=== PATIENT | female | born 1960 | race Caucasian/White ===

== ENCOUNTER 2017-09-05 14:03 | Emergency (ER) | payer MEDICARE, MEDICAID, SELFPAY ==
--- NOTE | 2017-09-05 14:07 | DI.RAD.S_ITS ---
PROCEDURE: XR CHEST 1V INDICATIONS: Chest pains history of congestive heart failure TECHNIQUE: One view of the chest was acquired. COMPARISON: [facility], , CHEST 2 VIEW, 12/15/2013, 12:51. FINDINGS: Surgical changes and devices: Surgical clips right axilla Lungs and pleura: No pleural effusions or pneumothorax. Elevation, eventration right hemidiaphragm. Lungs are clear. Mediastinum: Mediastinal contours appear normal. Heart size is normal. Bones and chest wall: No suspicious bony lesions. Overlying soft tissues appear unremarkable. IMPRESSION: No acute cardiopulmonary abnormality Dictated by: Ap Kim M.D. on 09/05/2017 at 14:40 Approved by: Ap Kim M.D. on 09/05/2017 at 14:42
[2017-09-05 14:10] VITALS: BP 143/91; PULSE 79; RESP 20; TEMP 36.9; O2SAT 96
--- NOTE | 2017-09-05 14:33 | ED_ITS ---
HPI - Chest Pain General Chief Complaint: Chest Pain Stated Complaint: CHEST PAINS, NAUSEA, HAS CHF Time Seen by Provider: 09/05/17 14:06 Source: patient Mode of arrival: ambulatory Limitations: no limitations History of Present Illness HPI narrative: 57-year-old female with a history of Parkinson's disease currently on medicine for this also history of diastolic heart failure secondary to chemotherapy from history of breast cancer here for evaluation of left-sided chest pain. Patient states she has had constant symptoms for the past 3 or 4 days with periods of time when the symptoms worsen. She states she has not been symptom free for several days. She reports that last evening her symptoms or the worst that they had been for the past several days. Denies any shortness of breath. States that it is a sharp and achy pain. Not worse with palpation. It is worse with taking a deep breath. Not worse with movement. She did take nitroglycerin last night which was given to her by her physical therapy technician and states that it slightly helped the pain. Patient states that her last cardiac catheterization was several years ago. She has never had any stent placement. Is scheduled for a pharmacologic stress test sometime in the near future but she does not know the exact date. Reports that she was having pain when she arrived here to the emergency department but that pain has improved by the time of my evaluation. Related Data Home Medications Medication Instructions Recorded Confirmed aspirin 81 mg PO QDAY #0 07/23/11 09/05/17 multivitamin 1 tab PO DAILY #0 07/23/11 09/05/17 albuterol sulfate [Ventolin HFA] 2 puff INH PRN #0 07/31/12 09/05/17 cyclobenzaprine 10 mg PO BEDTIME #0 07/31/12 09/05/17 metolazone 2.5 mg PO DAILY PRN #0 07/31/12 09/05/17 omeprazole 20 mg PO BEDTIME #0 07/31/12 09/05/17 nitroglycerin [Nitrostat] 1 tab SUBLINGUAL PRN PRN #0 05/14/17 09/05/17 potassium gluconate 1 tab PO DAILY #0 05/14/17 09/05/17 carbidopa-levodopa 1 tab PO DIRECTED 09/05/17 09/05/17 carvedilol 12.5 mg PO BID 09/05/17 09/05/17 colchicine [Colcrys] 1 tab PO PRN PRN 09/05/17 09/05/17 cyclobenzaprine 10 mg PO BEDTIME 09/05/17 09/05/17 donepezil 5 mg PO DAILY 09/05/17 09/05/17 febuxostat [Uloric] 80 mg PO DAILY 09/05/17 09/05/17 prednisone 10 - 20 mg PO DAILY PRN 09/05/17 09/05/17 pregabalin [Lyrica] 150 mg PO BID 09/05/17 09/05/17 ropinirole 1 tab PO QPM 09/05/17 09/05/17 spironolactone 50 mg PO DAILY 09/05/17 09/05/17 torsemide 20 mg PO DAILY 09/05/17 09/05/17 torsemide 50 mg PO QAM 09/05/17 09/05/17 Allergies Allergy/AdvReac Type Severity Reaction Status Date / Time allopurinol Allergy Verified 09/05/17 14:48 codeine AdvReac Rash Verified 09/05/17 14:48 Review of Systems Constitutional Denies chills, Denies fatigue, Denies fever(s) and Denies headache(s) ENT Ears, Nose, Mouth, and Throat: Denies headache(s) Cardiovascular Reports chest pain, Reports chest pain at rest, Denies rapid heart rate, Reports palpitations and Denies dyspnea Respiratory Denies cough, Reports pain on inspiration and Denies dyspnea Gastrointestinal Gastrointestinal: Denies abdominal pain, Denies constipation, Denies diarrhea, Denies nausea and Denies vomiting Genitourinary Denies dysuria Musculoskeletal Denies myalgias and Denies arthralgias Integumentary/Breasts Denies lesions and Denies rash Neurologic Denies headache(s) Endocrine Denies fatigue and Reports palpitations Hematologic/Lymphatic Denies easy bleeding and Denies easy bruising [facility] Social History Smoking Status: Never smoker Exam Initial Vital Signs Initial Vital Signs: Vital Signs Temperature 98.5 F 09/05/17 14:10 Pulse Rate 79 09/05/17 14:10 Respiratory Rate 20 09/05/17 14:10 Blood Pressure 143/91 H 09/05/17 14:10 Pulse Oximetry 96 09/05/17 14:10 Const General: cooperative, healthy appearing, comfortable, well developed, well groomed and No acute distress Orientation: alert, awake and oriented x3 HENMT Head: normal to inspection and normocephalic Chest Chest: normal inspection of the chest and normal palpation of entire chest wall Resp Effort & Inspection: normal respiratory effort and no cough Auscultation: clear to auscultation bilaterally Cardio Rate: regular rate Rhythm: regular rhythm Pulses: radial pulses present GI Inspection: normal to inspection and non-distended Palpation: soft and No firm Skin Lesions: no lesions Rashes: no rashes Neuro General: alert, awake and oriented x3 Cognition: normal cognition Speech: speech normal Motor: muscle tone normal throughout Sensory Exam: no sensory deficits noted Extrem General: normal to inspection, capillary refill normal and No edema Psych Appearance: grossly normal, well kempt and not disheveled Scores HEART Score Heart Score history: Slightly Suspicious Heart Score EKG: Non-Specific repolarization disturbance Heart Score Age: 45-64 years old Heart Score risk factors: 1-2 risk factors Heart Score troponin: < or = to normal limit Heart Score Total: 3 Course Orders Ordered: ED Orders 09/05/17 14:07 XR chest 1V Stat EKG-12 Lead Stat 09/05/17 14:15 B Type Natriuretic Peptide Stat Complete Blood Count AUTO DIFF Stat Comprehensive Metabolic Panel Stat Lipase Stat Troponin I Stat Discontinued Medications Aspirin (Aspirin Chew) 324 mg PO NOW ONE Stop: 09/05/17 14:33 Last Admin: 09/05/17 14:46 Dose: 324 mg Vital Signs - 8 hr 09/05/17 14:10 09/05/17 15:18 Temperature 98.5 F Pulse Rate 79 80 Respiratory Rate 20 11 L Blood Pressure 143/91 H Blood Pressure [Right Arm] 116/85 H Pulse Oximetry 96 96 MDM - Chest Pain Lab Data Attestation: I reviewed the patient's lab results. Result diagrams: 09/05/17 14:15 09/05/17 14:15 Lab Results 09/05/17 09/05/17 Range/Units 14:15 14:15 WBC 8.8 (4.5-11.0) X10^3/uL RBC 4.64 (4.0-5.2) X10^6/uL Hgb 13.7 (12.0-16.0) g/dL Hct 39.6 (36-46) % MCV 85.2 (80-100) fL MCH 29.5 (26-34) PG MCHC 34.6 (30-36) % RDW 14.9 H (11.6-14.8) % Plt Count 343 (150-400) X10^3/uL Neut % (Auto) 62.5 (50-75) % Lymph % (Auto) 27.8 (25-40) % [place] % (Auto) 8.5 (3-14) % Eos % (Auto) 0.0 L (2-4) % Baso % (Auto) 1.2 (0-2) % Neut # (Auto) 5500 (3945-4792) /uL Sodium 140 (137-145) mmol/L Potassium 3.3 L (3.4-5.1) mmol/L Chloride 93 L (98-107) mmol/L Carbon Dioxide 33 H (22-32) mmol/L BUN 28 H (7-17) mg/dL Creatinine 0.90 (0.52-1.04) mg/dL Estimated GFR > 60.0 (>60) mL/min BUN/Creatinine Ratio 31.1 H (6-22) Glucose 101 H (70-100) mg/dL Calcium 10.2 (8.4-10.2) mg/dL Total Bilirubin 1.3 (0.2-1.3) mg/dL AST 39 H (14-36) IU/L ALT 58 H (9-52) IU/L Alkaline Phosphatase 107 (38-126) U/L Troponin I < 0.012 (0.01-0.034) ng/mL B-Natriuretic Peptide 29.3 (<100) Total Protein 8.5 H (6.3-8.2) g/dL Albumin 5.1 H (3.5-5.0) g/dL Globulin 3.4 (1.7-4.1) g/dL Albumin/Globulin Ratio 1.5 (1.0-2.8) Lipase 95 (23-300) U/L Imaging Data Chest x-ray: Radiologist's impression: PROCEDURE: XR CHEST 1V INDICATIONS: Chest pains history of congestive heart failure TECHNIQUE: One view of the chest was acquired. COMPARISON: [facility], , CHEST 2 VIEW, 12/15/2013, 12:51. FINDINGS: Surgical changes and devices: Surgical clips right axilla Lungs and pleura: No pleural effusions or pneumothorax. Elevation, eventration right hemidiaphragm. Lungs are clear. Mediastinum: Mediastinal contours appear normal. Heart size is normal. Bones and chest wall: No suspicious bony lesions. Overlying soft tissues appear unremarkable. IMPRESSION: No acute cardiopulmonary abnormality Dictated by: Ap Kim M.D. on 09/05/2017 at 14:40 Approved by: Ap Kim M.D. on 09/05/2017 at 14:42 ECG Data Attestation: I personally reviewed and interpreted this ECG as follows: Prior ECG tracings: not available for review Interpretation: Sinus rhythm Ventricular rate 83 Normal axis Normal intervals Normal QRS Nonspecific ST T wave changes MDM Narrative Medical decision making narrative: Went in to discuss the patient's laboratory results with her. She reports that she is feeling much better. We did discuss that clinically and by labs that she is not in heart failure. She is not in respiratory distress. Is not hypoxic. We did discuss that her troponin. We discussed options to include staying here in the emergency department for another couple hours and redrawn the troponin verses being discharged home. Patient has had consistent chest pain for 3 or 4 days and has a negative troponin today. Heart score is 3. She does have a stress test scheduled for later this month. We did discuss that no it is at 0 risk for having coronary artery disease and our testing here in the emergency department is for risk stratification. She expressed understanding of this. She opted not to stay here in the emergency department for repeat troponin. She states she would rather go home call her physical therapy technician. Patient was given return precautions. She expressed understanding and agreement with plan Discharge Plan Departure Patient Disposition: Home, Self-Care Clinical Impression: Atypical chest pain Instructions: DI for Atypical Chest Pain Activity Restrictions/Additional Instructions: Recommend that you contact your physical therapy technician to schedule a follow-up. Keep your stress test that you have scheduled for later this month. Continue all of your medications as directed. Return to the emergency department for any new or worsening symptoms Prescriptions: No Action multivitamin Tablet 1 tab PO DAILY Qty: 0 RF: 0 aspirin 81 MG tablet,delayed release (DR/EC) 81 mg PO QDAY Qty: 0 RF: 0 metolazone 2.5 mg Tablet 2.5 mg PO DAILY PRN (Reason: Edema) Qty: 0 RF: 0 omeprazole 20 mg Capsule,Delayed Release(Dr/Ec) 20 mg PO BEDTIME Qty: 0 RF: 0 albuterol sulfate [Ventolin HFA] 90 MCG/PUFF HFA aerosol inhaler 2 puff INH PRN Qty: 0 RF: 0 cyclobenzaprine 10 MG tablet 10 mg PO BEDTIME Qty: 0 RF: 0 potassium gluconate 99 MG tablet 1 tab PO DAILY Qty: 0 RF: 0 nitroglycerin [Nitrostat] 0.4 MG tablet, sublingual 1 tab Sublingual PRN PRN (Reason: Chest Pain) Qty: 0 RF: 0 cyclobenzaprine 10 mg tablet 10 mg PO BEDTIME RF: 0 prednisone 10 mg tablet 10 - 20 mg PO DAILY PRN (Reason: gout flareup) RF: 0 carvedilol 12.5 mg tablet 12.5 mg PO BID RF: 0 donepezil 5 mg tablet 5 mg PO DAILY RF: 0 torsemide 20 mg tablet 20 mg PO DAILY RF: 0 ropinirole 3 mg tablet 1 tab PO QPM RF: 0 torsemide 100 mg tablet 50 mg PO QAM RF: 0 colchicine [Colcrys] 0.6 mg tablet 1 tab PO PRN PRN (Reason: GOUT FLAREUP) RF: 0 carbidopa-levodopa 25-100 mg tablet 1 tab PO DIRECTED RF: 0 spironolactone 50 mg tablet 50 mg PO DAILY RF: 0 pregabalin [Lyrica] 150 mg capsule 150 mg PO BID RF: 0 febuxostat [Uloric] 80 mg tablet 80 mg PO DAILY RF: 0
[2017-09-05 14:35] LABS: Add Manual Diff / Slide Review NO; Basophils Percent Auto 1.2 % (0-2); Hematocrit 39.6 % (36-46); Hemoglobin 13.7 g/dL (12.0-16.0); Lymphocytes Percent Auto 27.8 % (25-40); Mean Corpuscular HGB Conc 34.6 % (30-36); Mean Corpuscular Hemoglobin 29.5 PG (26-34); Mean Corpuscular Volume 85.2 fL (80-100); Monocytes Percent Auto 8.5 % (3-14); Neutrophils Absolute Auto 5500 /uL (3000-5900); Neutrophils Percent Auto 62.5 % (50-75); Platelet Count 343 X10^3/uL (150-400); Red Blood Cell Count 4.64 X10^6/uL (4.0-5.2); Red Cell Distribution Width 14.9 % (11.6-14.8); White Blood Cell Count 8.8 X10^3/uL (4.5-11.0)
[2017-09-05 14:38] LABS: Alanine Aminotransferase 58 IU/L (9-52); Albumin 5.1 g/dL (3.5-5.0); Albumin Globulin Ratio 1.5 (1.0-2.8); Alkaline Phosphatase 107 U/L (38-126); Aspartate Aminotransferase 39 IU/L (14-36); BUN Creatinine Ratio 31.1 (6-22); Bilirubin Total 1.3 mg/dL (0.2-1.3); Blood Urea Nitrogen 28 mg/dL (7-17); Calcium 10.2 mg/dL (8.4-10.2); Carbon Dioxide 33 mmol/L (22-32); Chloride 93 mmol/L (98-107); Estimated Glomerular Filt Rate > 60.0 mL/min (>60); Globulin 3.4 g/dL (1.7-4.1); Glucose 101 mg/dL (70-100); HEMOLYSIS 17 (0-50); Lipase 95 U/L (23-300); Potassium 3.3 mmol/L (3.4-5.1); Sodium 140 mmol/L (137-145); Total Protein 8.5 g/dL (6.3-8.2)
[2017-09-05] MEDS: ASPIRIN 81 MG TAB 324 MG PO (14:46)
[2017-09-05 15:05] LABS: Troponin I < 0.012 ng/mL (0.01-0.034)
[2017-09-05 15:09] LABS: B Type Natriuretic Peptide 29.3 (<100)
[2017-09-05 15:18] VITALS: BP 116/85; PULSE 80; RESP 11; O2SAT 96
[2017-09-05 15:57] VITALS: BP 120/75; PULSE 79; RESP 16; O2SAT 95
== END 2017-09-05 15:57 | disposition home or self-care (01) ==
PROVIDERS: Emergency Provider Emergency Medicine; Family Provider Internal Medicine Cardiovascular Disease; PCP Family Medicine
DX: R07.89 Other chest pain (principal)
CPT/HCPCS: 36591; 71045; 80053; 83690; 83880; 84484; 85025; 93005; 99282; 99285

== ENCOUNTER → 2017-12-31 12:05 | Outpatient (CLI) | payer MEDICARE, MEDICAID, SELFPAY ==
--- NOTE | 2017-12-31 | DI.MG.S_ITS ---
BILATERAL DIGITAL SCREENING MAMMOGRAM 3D/2D WITH CAD POST LUMPECTOMY: 12/31/2017 CLINICAL: Routine screening. Personal history of right breast cancer. Comparison is made to exams dated: 12/26/2015 mammogram - [facility], 03/27/2012 mammogram, and 06/28/2010 mammogram - [facility]. There are scattered fibroglandular elements in both breasts. Current study was also evaluated with a Computer Aided Detection (CAD) system. No significant masses, calcifications, or other findings are seen in either breast. There has been no significant interval change. IMPRESSION: NEGATIVE There is no mammographic evidence of malignancy. A 1 year screening mammogram is recommended. NOTE: For mammograms, a report in lay terms will be sent to the patient. Approximately 15% of breast malignancies will not be visualized mammographically. In the management of a palpable breast mass, a negative mammogram must not discourage biopsy of a clinically suspicious lesion. Electronically Signed By: Margarita muñoz/daria:12/31/2017 15:53:08 letter sent: Normal Exam ACR BI-RADS Category 1: Negative [id number]
== END ==
PROVIDERS: PCP Family Medicine; Visit Provider Family Medicine
DX: Z12.31 Encounter for screening mammogram for malignant neoplasm of breast (principal); Z85.3 Personal history of malignant neoplasm of breast
CPT/HCPCS: 77063; 77067

== ENCOUNTER → 2018-06-25 12:03 | Outpatient (CLI) | payer MEDICARE, MEDICAID, SELFPAY ==
[2018-06-25 12:41] LABS: Add Manual Diff / Slide Review NO; Basophils Absolute Auto 100 /uL (0-100); Basophils Percent Auto 0.7 % (0-2); Eosinophils Absolute Auto 0 /uL (0-450); Hematocrit 41.1 % (36-46); Hemoglobin 13.9 g/dL (12.0-16.0); Lymphocytes Absolute Auto 2300 /uL (1100-4500); Lymphocytes Percent Auto 25.5 % (25-40); Mean Corpuscular HGB Conc 33.9 % (30-36); Mean Corpuscular Hemoglobin 29.2 PG (26-34); Mean Corpuscular Volume 86.2 fL (80-100); Monocytes Absolute Auto 600 /uL (0-900); Monocytes Percent Auto 6.3 % (3-14); Neutrophils Absolute Auto 6100 /uL (1500-7000); Neutrophils Percent Auto 67.5 % (50-75); Platelet Count 325 X10^3/uL (150-400); Red Blood Cell Count 4.77 X10^6/uL (4.0-5.2); Red Cell Distribution Width 14.5 % (11.6-14.8); White Blood Cell Count 9.1 X10^3/uL (4.5-11.0)
[2018-06-25 13:00] LABS: Alanine Aminotransferase 57 IU/L (9-52); Albumin Globulin Ratio 1.5 (1.0-2.8); Alkaline Phosphatase 119 U/L (38-126); Aspartate Aminotransferase 39 IU/L (14-36); Bilirubin Total 1.5 mg/dL (0.2-1.3); Blood Urea Nitrogen 33 mg/dL (7-17); C-Reactive Protein Quant 1.6 mg/dL (<1.0); Calcium 10.1 mg/dL (8.4-10.2); Carbon Dioxide 32 mmol/L (22-32); Chloride 91 mmol/L (98-107); Estimated Glomerular Filt Rate 57.6 mL/min (>60); Globulin 3.3 g/dL (1.7-4.1); Glucose 114 mg/dL (70-100); HEMOLYSIS < 15 (0-50); Potassium 3.3 mmol/L (3.4-5.1); Sodium 138 mmol/L (137-145); Total Protein 8.3 g/dL (6.3-8.2)
[2018-06-25 13:04] LABS: Erythrocyte Sedimentation Rate 29 MM/HR (0-20)
== END ==
PROVIDERS: PCP Family Medicine; Visit Provider Specialist/Technologist Athletic Trainer
DX: M1A.09X1 Idiopathic chronic gout, multiple sites, with tophus (tophi) (principal)
CPT/HCPCS: 36415; 80053; 84550; 85025; 85651; 86140

== ENCOUNTER → 2019-09-29 12:42 | Outpatient (CLI) | payer MEDICARE, MEDICAID, SELFPAY ==
[2019-09-29 13:16] LABS: Add Manual Diff / Slide Review NO; Basophils Absolute Auto 100 /uL (0-100); Eosinophils Absolute Auto 0 /uL (0-450); Hematocrit 37.7 % (36-46); Lymphocytes Absolute Auto 2400 /uL (1100-4500); Lymphocytes Percent Auto 29.9 % (25-40); Mean Corpuscular HGB Conc 34.5 % (30-36); Mean Corpuscular Hemoglobin 29.9 PG (26-34); Mean Corpuscular Volume 86.7 fL (80-100); Monocytes Absolute Auto 500 /uL (0-900); Monocytes Percent Auto 6.8 % (3-14); Neutrophils Absolute Auto 4900 /uL (1500-7000); Neutrophils Percent Auto 62.3 % (50-75); Platelet Count 258 X10^3/uL (150-400); Red Blood Cell Count 4.35 X10^6/uL (4.0-5.2); Red Cell Distribution Width 13.7 % (11.6-14.8); White Blood Cell Count 7.9 X10^3/uL (4.5-11.0)
[2019-09-29 13:33] LABS: Erythrocyte Sedimentation Rate 37 MM/HR (0-20)
[2019-09-29 14:01] LABS: Alanine Aminotransferase 67 IU/L (<35); Albumin 4.8 g/dL (3.5-5.0); Albumin Globulin Ratio 1.5 (1.0-2.8); Alkaline Phosphatase 122 U/L (38-126); Aspartate Aminotransferase 47 IU/L (14-36); BUN Creatinine Ratio 21.4 (6-22); Bilirubin Total 1.1 mg/dL (0.2-1.3); Blood Urea Nitrogen 22 mg/dL (7-17); C-Reactive Protein Quant 2.1 mg/dL (<1.0); Calcium 10.4 mg/dL (8.4-10.2); Carbon Dioxide 32 mmol/L (22-32); Chloride 95 mmol/L (98-107); Estimated Glomerular Filt Rate 55.2 mL/min (>60); Globulin 3.3 g/dL (1.7-4.1); Glucose 168 mg/dL (70-100); HEMOLYSIS < 15 (0-50); Potassium 3.2 mmol/L (3.4-5.1); Sodium 138 mmol/L (137-145); Total Protein 8.1 g/dL (6.3-8.2); Uric Acid 5.1 mg/dL (2.5-6.2)
== END ==
PROVIDERS: PCP Family Medicine; Referring Provider Physician Assistant Medical; Visit Provider Physician Assistant Medical
DX: M12.9 Arthropathy, unspecified (principal); Z79.899 Other long term (current) drug therapy
CPT/HCPCS: 36415; 80053; 84550; 85025; 85651; 86038; 86140

== ENCOUNTER 2021-08-05 11:16 | Emergency (ER) | payer MEDICARE, OTHER, SELFPAY ==
[2021-08-05] VITALS (7 sets, daily range): BP systolic 130–185; BP diastolic 62–106; PULSE 65–85; RESP 12–18; TEMP 36.2; O2SAT 93–98; BMI 38.7
--- NOTE | 2021-08-05 11:44 | DI.CT.S_ITS ---
PROCEDURE: CT HEAD/BRAIN WO CON INDICATIONS: intense headaches, Parkinson's, word searching TECHNIQUE: Noncontrast 4.5 mm thick angled axial sections acquired from the foramen magnum to the vertex, with coronal and sagittal reformats. For radiation dose reduction, the following was used: automated exposure control, adjustment of mA and/or kV according to patient size. COMPARISON: None. FINDINGS: Image quality: Excellent. CSF spaces: Basal cisterns are patent. No extra-axial fluid collections. Ventricles are normal in size and shape. Brain: No midline shift. No intracranial masses or hemorrhage. Sol-white matter interface is normal. Skull and face: Calvarium and visualized facial bones are intact, without suspicious lesions. Sinuses: Visualized sinuses and mastoids are clear. IMPRESSION: Unremarkable noncontrast head CT. Dictated by: Moreno Patricia M.D. on 08/05/2021 at 11:07 Approved by: Moreno Patricia M.D. on 08/05/2021 at 11:08
[2021-08-05 13:02] LABS: Add Manual Diff / Slide Review NO; Basophils Absolute Auto 0 /uL (0-100); Basophils Percent Auto 0.5 % (0-2); Eosinophils Absolute Auto 0 /uL (0-450); Eosinophils Percent Auto 0.1 % (2-4); Hematocrit 38.1 % (36-46); Hemoglobin 13.1 g/dL (12.0-16.0); Lymphocytes Absolute Auto 1800 /uL (1100-4500); Lymphocytes Percent Auto 25.4 % (25-40); Mean Corpuscular HGB Conc 34.3 % (30-36); Mean Corpuscular Hemoglobin 29.4 PG (26-34); Mean Corpuscular Volume 85.5 fL (80-100); Monocytes Absolute Auto 500 /uL (0-900); Monocytes Percent Auto 7.7 % (3-14); Neutrophils Absolute Auto 4600 /uL (1500-7000); Neutrophils Percent Auto 66.3 % (50-75); Platelet Count 266 X10^3/uL (150-400); Red Blood Cell Count 4.46 X10^6/uL (4.0-5.2); Red Cell Distribution Width 14.2 % (11.6-14.8); White Blood Cell Count 6.9 X10^3/uL (4.5-11.0)
[2021-08-05 13:10] LABS: INR 0.9 (0.9-1.3); Prothrombin Time 10.2 SECONDS (10.1-12.7)
[2021-08-05 13:17] LABS: Alanine Aminotransferase 48 IU/L (<35); Albumin 4.4 g/dL (3.5-5.0); Albumin Globulin Ratio 1.3 (1.0-2.8); Alkaline Phosphatase 114 U/L (38-126); Aspartate Aminotransferase 36 IU/L (14-36); Blood Urea Nitrogen 18 mg/dL (7-17); Calcium 9.4 mg/dL (8.4-10.2); Carbon Dioxide 31 mmol/L (22-32); Chloride 99 mmol/L (98-107); Estimated Glomerular Filt Rate > 60 mL/min (>60); Globulin 3.3 g/dL (1.7-4.1); Glucose 227 mg/dL (70-100); HEMOLYSIS < 15 (0-50); Potassium 3.6 mmol/L (3.4-5.1); Sodium 139 mmol/L (137-145); Total Protein 7.7 g/dL (6.3-8.2)
[2021-08-05 13:18] LABS: Lactate (Lactic Acid) 1.9 mmol/L (0.7-2.1)
[2021-08-05 13:26] LABS: NT-proBNP (BNP-Adult 18+) 93 pg/mL (<125)
--- NOTE | 2021-08-05 13:52 | ED_ITS ---
HPI - Weakness General Chief complaint: Weakness Stated complaint: headache weak numbness Time Seen by Provider: 08/05/21 13:50 Source: patient Mode of arrival: Ambulatory Limitations: no limitations History of Present Illness HPI Narrative: This is a 61-year-old female with history of Parkinson's disease, CHF who occasionally takes aspirin 81 mg daily but not recently for complaint of significant sudden onset of worst headache of her life on August 02. Patient states the headache lasted probably tender 15 minutes and then sort of tapered off. She has a history of migraines but states this felt different. She typically would get an aura she did not have 1. Typically will be one-sided in this was all over her head. She states that she has chronic left-sided weakness greater than right and felt a little bit weaker on her left side. Patient states she has felt fatigued since then. She had nausea which has resolved no vomiting. She felt sort of numb in the center of her face. Which resolved as well. She states she has continued to have some mild discomfort which is been achy. She had 1 additional episode today in the waiting area the lasted 10 or 15 minutes and then has since resolved. She has felt a little bit shaky or than normal. She has not had any falls or trauma. No acute vision changes other than noting that her she loses her ability to focus when coloring a little bit faster than normal. No chest pain, no shortness of breath. One episode of diarrhea today, no new urinary frequency dysuria urgency. No swelling. No numbness or tingling in her extremities. She had a remote history of breast cancer with lumpectomy, chemo and radiation 20 years ago, no brain rad iation. She has had cholecystectomy. She is allergic to allopurinol. No tobacco, alcohol or illicit. She has a family history of her dad having an abdominal aortic aneurysm and aneurysm behind his knee. Her primary care is at [facility]. Related Data Home Medications Medication Instructions Recorded Confirmed aspirin 81 mg tablet,delayed 81 mg PO QDAY ##0 07/23/11 11/06/18 release multivitamin 1 tab PO DAILY ##0 07/23/11 11/06/18 albuterol sulfate 90 mcg/actuation 2 puff INH PRN ##0 07/31/12 11/06/18 aerosol inhaler (Ventolin HFA) cyclobenzaprine 10 mg tablet 10 mg PO BEDTIME ##0 07/31/12 11/06/18 metolazone 2.5 mg tablet 2.5 mg PO DAILY PRN Edema ##0 07/31/12 11/06/18 omeprazole 20 mg capsule,delayed 20 mg PO BEDTIME ##0 07/31/12 11/06/18 release nitroglycerin 0.4 mg sublingual 1 tab sublingual PRN PRN Chest 05/14/17 11/06/18 tablet (Nitrostat) Pain ##0 potassium gluconate 595 mg (99 mg) 1 tab PO DAILY ##0 05/14/17 11/06/18 tablet carbidopa 25 mg-levodopa 100 mg 1 tab PO DIRECTED 09/05/17 11/06/18 tablet carvedilol 12.5 mg tablet 12.5 mg PO BID 09/05/17 11/06/18 colchicine 0.6 mg tablet 1 tab PO PRN PRN GOUT FLAREUP 09/05/17 11/06/18 cyclobenzaprine 10 mg tablet 10 mg PO BEDTIME 09/05/17 11/06/18 donepezil 5 mg tablet 5 mg PO DAILY 09/05/17 11/06/18 febuxostat 80 mg tablet 80 mg PO DAILY 09/05/17 11/06/18 prednisone 10 mg tablet 10 - 20 mg PO DAILY PRN gout 09/05/17 11/06/18 flareup pregabalin 150 mg capsule 150 mg PO BID 09/05/17 11/06/18 ropinirole 3 mg tablet 1 tab PO QPM 09/05/17 11/06/18 spironolactone 50 mg tablet 50 mg PO DAILY 09/05/17 11/06/18 torsemide 100 mg tablet 50 mg PO QAM 09/05/17 11/06/18 torsemide 20 mg tablet 20 mg PO DAILY 09/05/17 11/06/18 Allergies Allergy/AdvReac Type Severity Reaction Status Date / Time allopurinol Allergy Verified 11/06/18 19:40 codeine AdvReac Rash Verified 11/06/18 19:40 Review of Systems Review of Systems ROS Unobtainable: All systems reviewed & are unremarkable except as noted in HPI and below Patient History Social History Smoking Status: Never smoker Smoking Status: Never smoker alcohol intake frequency: 0-2 drinks per day Substance Use Type: does not use Exam Narrative Exam Narrative: GEN: well nourished, well appearing female, alert and oriented x 3, patient appears to be in mild distress. HEENT: Atraumatic, pupils are equal round reactive to light, extraocular movements are intact, nares are clear, TMs are clear with no fluid, there is no conjunctival pallor. Throat is clear without any exudates, erythema, tonsillar enlargement or uvular deviation, no facial droop. HEART: Regular rate and rhythm without murmur, clicks, rubs. No carotid bruits, pulses are equal in upper and lower extremities LUNGS:Lungs clear to auscultation, no wheezes, rales, crackles, chest moves symmetrically ABD:bowel sounds normal, soft, non-tender, no guarding, rebound, rigidity, no masses noted, no hepatosplenomegaly :No CVA tenderness MSCL: Non-tender, no muscle atrophy, muscles strength 5/5 upper and lower extremities. NEURO:CN 2-12 intact, sensation normal, reflexes 2/4 upper and lower extremities. finger nose finger test normal, heel jiménez test abnormal bilaterally, slightly worse on the left, patient has a mild tremor upper and lower extremities. Normal gait. SKI:N no rash, erythema or other skin changes Initial Vital Signs Initial Vital Signs: Vital Signs Temperature 97.2 F L 08/05/21 11:38 Pulse Rate 85 08/05/21 11:38 Respiratory Rate 16 08/05/21 11:38 Blood Pressure 185/106 H 08/05/21 11:38 Pulse Oximetry 97 08/05/21 11:38 Oxygen Delivery Method 08/05/21 11:38 Course Orders Ordered: Discontinued Medications Acetaminophen (Acetaminophen 325 Mg Tablet) 975 mg PO NOW ONE Stop: 08/05/21 15:06 Last Admin: 08/05/21 15:22 Dose: 975 mg Documented By: THAO Lorazepam (Lorazepam 0.5 Mg Tablet) 0.5 mg PO NOW ONE Stop: 08/05/21 16:19 Last Admin: 08/05/21 16:49 Dose: 0.5 mg Documented By: ALICIA Metoclopramide HCl (Metoclopramide 10 Mg/2 Ml Inj) 10 mg IV NOW ONE Stop: 08/05/21 15:06 Last Admin: 08/05/21 15:22 Dose: 10 mg Documented By: THAO Reevaluation(s) Reevaluation #1: Reviewed patient's findings today. CTA negative within 6 hours window of most recent, discussed sensitivity versus risk. She has 1 first-degree relative. She does not have headache currently she does have some neck discomfort. You have to refer headache. Patient is unsure if she wants to proceed with lumbar puncture and risks versus benefits reviewed again. She is contemplating and wi ll make final decision Time: 15:06 Reevaluation #2: Patient and I reviewed her COVID swab is negative. She is still expressing 130 beyond about lumbar puncture. We reviewed once again risks and benefits that there is some risk that she could have subarachnoid cannot be completely ruled out. Patient and family at bedside are aware. At this time patient defers. She was encouraged to return at any time and we discussed that if she is not having any recurrent headaches would still be worthwhile to follow-up with her primary care for either MR angiography or more direct angiography that is available at larger facilities. Patient was having some increased restless leg symptoms likely from the Reglan on top of her Parkinson's disease. She states Benadryl makes her symptoms worse was given a dose of Ativan p.o. here. Time: 16:30 Vital Signs Vital signs: Vital Signs - 8 hr 08/05/21 11:38 08/05/21 12:34 08/05/21 12:35 Temperature 97.2 F L Pulse Rate 85 69 Respiratory Rate 16 12 Blood Pressure 185/106 H 162/78 H Pulse Oximetry 97 98 Oxygen Delivery Method Room Air 08/05/21 12:35 08/05/21 14:43 08/05/21 14:44 Temperature Pulse Rate 69 66 65 Respiratory Rate 15 18 Blood Pressure Pulse Oximetry 98 94 93 Oxygen Delivery Method 08/05/21 14:44 Temperature Pulse Rate Respiratory Rate Blood Pressure 130/77 Pulse Oximetry Oxygen Delivery Method MDM - Weakness Lab Data Result diagrams: 08/05/21 12:40 08/05/21 12:40 Labs: Lab Results 08/05/21 08/05/21 08/05/21 Range/Units 12:40 12:40 12:40 WBC 6.9 (4.5-11.0) X10^3/uL RBC 4.46 (4.0-5.2) X10^6/uL Hgb 13.1 (12.0-16.0) g/dL Hct 38.1 (36-46) % MCV 85.5 (80-100) fL MCH 29.4 (26-34) PG MCHC 34.3 (30-36) % RDW 14.2 (11.6-14.8) % Plt Count 266 (150-400) X10^3/uL Neut % (Auto) 66.3 (50-75) % Lymph % (Auto) 25.4 (25-40) % [place] % (Auto) 7.7 (3-14) % Eos % (Auto) 0.1 L (2-4) % Baso % (Auto) 0.5 (0-2) % Neut # (Auto) 4600 (6601-1593) /uL Lymph # (Auto) 1800 (0096-7625) /uL [place] # (Auto) 500 (0-900) /uL Eos # (Auto) 0 (0-450) /uL Baso # (Auto) 0 (0-100) /uL PT 10.2 (10.1-12.7) SECONDS INR 0.9 (0.9-1.3) Sodium 139 (137-145) mmol/L Potassium 3.6 (3.4-5.1) mmol/L Chloride 99 (98-107) mmol/L Carbon Dioxide 31 (22-32) mmol/L BUN 18 H (7-17) mg/dL Creatinine 0.82 (0.52-1.04) mg/dL Estimated GFR > 60 (>60) mL/min BUN/Creatinine Ratio 22.0 (6-22) Glucose 227 H (70-100) mg/dL Lactate (0.7-2.1) mmol/L Calcium 9.4 (8.4-10.2) mg/dL Total Bilirubin 1.0 (0.2-1.3) mg/dL AST 36 (14-36) IU/L ALT 48 H (<35) IU/L Alkaline Phosphatase 114 (38-126) U/L NT-Pro-B Natriuret Pep 93 (<125) pg/mL Total Protein 7.7 (6.3-8.2) g/dL Albumin 4.4 (3.5-5.0) g/dL Globulin 3.3 (1.7-4.1) g/dL Albumin/Globulin Ratio 1.3 (1.0-2.8) SARS-CoV-2 (PCR) (Negative) 08/05/21 08/05/21 Range/Units 12:40 15:07 WBC (4.5-11.0) X10^3/uL RBC (4.0-5.2) X10^6/uL Hgb (12.0-16.0) g/dL Hct (36-46) % MCV (80-100) fL MCH (26-34) PG MCHC (30-36) % RDW (11.6-14.8) % Plt Count (150-400) X10^3/uL Neut % (Auto) (50-75) % Lymph % (Auto) (25-40) % [place] % (Auto) (3-14) % Eos % (Auto) (2-4) % Baso % (Auto) (0-2) % Neut # (Auto) (4632-3836) /uL Lymph # (Auto) (0396-6847) /uL [place] # (Auto) (0-900) /uL Eos # (Auto) (0-450) /uL Baso # (Auto) (0-100) /uL PT (10.1-12.7) SECONDS INR (0.9-1.3) Sodium (137-145) mmol/L Potassium (3.4-5.1) mmol/L Chloride (98-107) mmol/L Carbon Dioxide (22-32) mmol/L BUN (7-17) mg/dL Creatinine (0.52-1.04) mg/dL Estimated GFR (>60) mL/min BUN/Creatinine Ratio (6-22) Glucose (70-100) mg/dL Lactate 1.9 (0.7-2.1) mmol/L Calcium (8.4-10.2) mg/dL Total Bilirubin (0.2-1.3) mg/dL AST (14-36) IU/L ALT (<35) IU/L Alkaline Phosphatase (38-126) U/L NT-Pro-B Natriuret Pep (<125) pg/mL Total Protein (6.3-8.2) g/dL Albumin (3.5-5.0) g/dL Globulin (1.7-4.1) g/dL Albumin/Globulin Ratio (1.0-2.8) SARS-CoV-2 (PCR) Negative (Negative) Imaging Data CT scan - head: Radiologist Impression: [address] [id number] Scan ReportSigned Patient: Laura Fonseca LMR#: [id number]: 1960Acct:[id number]/Sex: 61 / FDate of Service: 08/05/21Loc: EDAccession Number: [id number]? ? Procedure: CT head/brain wo con Ordering Provider: Kelsey Colorado D.O. PROCEDURE:? CT HEAD/BRAIN WO CON ? INDICATIONS:? intense headaches, Parkinson's, word searching ? TECHNIQUE:? Noncontrast 4.5 mm thick angled axial sections acquired from the foramen magnum to the vertex, with coronal and sagittal reformats.? For radiation dose reduction, the following was used:? automated exposure control, adjustment of mA and/or kV according to patient size.? ? COMPARISON:? None. ? FINDINGS:? Image quality:? Excellent.? ? CSF spaces:? Basal cisterns are patent.? No extra-axial fluid collections.? Vent ricles are normal in size and shape.? ? Brain:? No midline shift.? No intracranial masses or hemorrhage.? Sol-white matter interface is normal.? ? Skull and face:? Calvarium and visualized facial bones are intact, without suspicious lesions.? ? Sinuses:? Visualized sinuses and mastoids are clear.? ? IMPRESSION:? Unremarkable noncontrast head CT.? ? Dictated by: Moreno Patricia M.D. on 08/05/2021 at 11:07? ?? Approved by: Moreno Patricia M.D. on 08/05/2021 at 11:08?? CTA - brain/neck: Radiologist Impression: Close Head/Neck CTA (Signed) Walt Vega - 08/05/[address] (Signed) Moreno Patricia - 08/05/21 Mammogram Screening (Signed) Margarita Kramer - 12/31/17 Chest X-Ray (Signed) Ap Kim - 09/05/17 Launch?Image [address] [address] [address] Scan Report Signed Patient: Laura Fonseca MR#: [id number] : 1960 Acct:[id number] Age/Sex: 61 / F Date of Service: 08/05/21 Loc: ED Accession Number: [id number] ?? Procedure: CT angio head and neck Ordering Provider: Kelsey Colorado D.O. PROCEDURE:? CT ANGIO HEAD AND NECK ? INDICATIONS:? sudden onset MUÑIZ, resolved.? fam hx of aneurysm dad. ? TECHNIQUE:? After the administration of intravenous contrast, 1 mm thick sections acquired from the aortic arch through the [place] of Low.? Post-contrast 4.5 mm thick sections then re-acquired from the foramen magnum to the vertex.? 3-dimensional xkxlkws-ywbeynnnu-vnkualoxtm (MIP) and/or volume rendering reformats were acquired of the central intracranial vasculature and neck separately. For radiation dose reduction, the following was used:? automated exposure control, adjustment of mA and/or kV according to patient size.? ? COMPARISON:? [facility], CT, CT HEAD/BRAIN WO CON, 08/05/2021, 11:51. ? FINDINGS:? Image quality:? Excellent.? ? BRAIN:? CSF spaces:? Ventricles are normal in size and shape.? Basal cisterns are patent.? No extra-axial fluid collections.? ? Brain:? No midline shift.? No intracranial bleeds or masses.? Sol-white matter interface appears intact.? No area of abnormal contrast enhancement is seen ? Skull and face:? Calvarium and facial bones appear intact, without suspicious lesions.? Orbits appear normal.? ? Sinuses:? Sinuses and mastoids are clear.? ? HEAD CT ANGIOGRAPHY:? Anterior circulation:? Intracranial internal carotid arteries are normal in size and flow.? The flow within the paired anterior cerebral arteries is normal and symmetric.? The flow within the middle cerebral arteries is normal and symmetric.? The anterior communicating artery is seen.? No aneurysms are seen.? ? Posterior circulation:? Visualized portions of the vertebral arteries demonstrate normal caliber, and join to form a normal appearing basilar artery.? Flow within the posterior cerebral arteries is normal and symmetric.? No aneurysms are seen.? ? NECK CT ANGIOGRAPHY:? Carotid system:? The great vessels demonstrate a conventional anatomy as they arise from the aortic arch.? The origins of the common carotid arteries appear patent.? The common carotid arteries demonstrate normal caliber and courses.? The bifurcation regions are both widely patent.? The internal carotid arteries demonstrate normal calibers and courses.? ? Posterior circulation:? The origins of the vertebral arteries both appear widely patent.? The more superior extracranial portions of both vertebral arteries also demonstrate normal courses and calibers.? They join to form a normal appearing basilar artery.? ? Soft tissues:? Visualized neck soft tissues demonstrate no suspicious abnormalities.? ? Bones:? No suspicious bony lesions.? Visualized cervical spine appears normally aligned.? IMPRESSION:? 1. No CT evidence of acute intracranial abnormalities.? No area of abnormal intracranial enhancement.? 2. No hemodynamically significant stenosis or aneurysm is seen in intracranial circulation. 3. No hemodynamically significant stenosis is seen in bilateral neck arteries.? ? Any quantitative measurements of stenosis were performed using NASCET criteria.? ? ? Dictated by: Walt Vega M.D. on 08/05/2021 at 14:38 ? ? Approved by: Walt Vega M.D. on 08/05/2021 at 14:41?? ECG Data Attestation: I personally reviewed and interpreted this ECG as follows: Prior ECG tracings: available for review Interpretation: Sinus rhythm, 71 right, [place] 170 QRS of 108 QTC of 421. Patient has prior from 09/05/2017. [facility] Narrative Medical decision making narrative: This is a 61-year-old female with sudden onset severe headache last week which had resolved but still felt sort of achy and unwell. She had some numbness in her central face, she had appreciated a little bit of increased left weakness but states she chronically has left weakness from her Parkinson's disease. Patient states that today when she came to the emergency department she develope d a headache while waiting to be seen again. Patient has had migraines before but states this is different. She has a family history of father with popliteal an aortic abdominal aneurysm no other known family members with aneurysms. Patient and I discussed head CT was negative and CT angio negative within 6 hours of onset of today's symptoms. We did discuss lumbar puncture to rule out SAH, after some discussion patient defers. We did discuss we cannot completely rule out bleed or aneurysm without lumbar puncture although sensitivity for CTA in a 6 hour window from onset of symptoms is good it is not perfect. She expresses understanding was encouraged to return at any time all questions answered. Her and her sister both were at bedside for this discussion. Patient did have some Tylenol and Reglan for her headache which she described at this time is mild and more lower in her neck. This made for restless leg symptoms worsen she was given a single dose of lorazepam. Patient is ambulating in the department. Discharge Plan Departure Patient Disposition: Home Clinical Impression: Headache Instructions: DI for Headache Activity Restrictions/Additional Instructions: Please follow-up shortly with your physician for recheck. We did discuss performing lumbar puncture today but as dicussed did not. There are additional ways web development instructor to follow up that you can ask with your physician including MRI/MRAngiography. Your CT angiography today was negative for any signs of aneurysm or bleed at this time. Please return for recurrent or worsening headaches, passing out persistent vomiting, new chest pain or shortness of breath, new numbness, weakness or sudden neurologic changes or other new or concerning symptoms. Prescriptions: No Action multivitamin Tablet 1 tab PO DAILY Qty: 0 Label Comments: PATIENT STATES HAS NOT TAKEN FOR AWHILE aspirin 81 MG tablet,delayed release (DR/EC) 81 mg PO QDAY Qty: 0 Label Comments: NOT TAKEN TODAY. PATIENT STATES RAN OUT metolazone 2.5 mg Tablet 2.5 mg PO DAILY PRN (Reason: Edema) Qty: 0 omeprazole 20 mg Capsule,Delayed Release(Dr/Ec) 20 mg PO BEDTIME Qty: 0 albuterol sulfate [Ventolin HFA] 90 MCG/PUFF HFA aerosol inhaler 2 puff INH PRN Qty: 0 cyclobenzaprine 10 MG tablet 10 mg PO BEDTIME Qty: 0 potassium gluconate 99 MG tablet 1 tab PO DAILY Qty: 0 nitroglycerin [Nitrostat] 0.4 MG tablet, sublingual 1 tab Sublingual PRN PRN (Reason: Chest Pain) Qty: 0 cyclobenzaprine 10 mg tablet 10 mg PO BEDTIME prednisone 10 mg tablet 10 - 20 mg PO DAILY PRN (Reason: gout flareup) Label Comments: take 1 to 2 tablets by mouth FOR 3 TO 5 DAYS NEEDED FOR GOUT FLARE carvedilol 12.5 mg tablet 12.5 mg PO BID donepezil 5 mg tablet 5 mg PO DAILY torsemide 20 mg tablet 20 mg PO DAILY ropinirole 3 mg tablet 1 tab PO QPM torsemide 100 mg tablet 50 mg PO QAM colchicine [Colcrys] 0.6 mg tablet 1 tab PO PRN PRN (Reason: GOUT FLAREUP) Label Comments: TAKE 1 TAB AT ONSET OF A GOUT FLARE AND THEN IN NEXT HOUR TAKE 1 ADDITIONAL TAB carbidopa-levodopa 25-100 mg tablet 1 tab PO DIRECTED Label Comments: PATIENT STATES NEEDED TID spironolactone 50 mg tablet 50 mg PO DAILY pregabalin [Lyrica] 150 mg capsule 150 mg PO BID febuxostat [Uloric] 80 mg tablet 80 mg PO DAILY Label Comments: take 1 tablet by mouth once daily Referrals: Lois Heller MD [Primary Care Provider] - Visit Report Forms: Patient Portal/API
--- NOTE | 2021-08-05 14:13 | DI.CT.S_ITS ---
PROCEDURE: CT ANGIO HEAD AND NECK INDICATIONS: sudden onset MUÑIZ, resolved. fam hx of aneurysm dad. TECHNIQUE: After the administration of intravenous contrast, 1 mm thick sections acquired from the aortic arch through the [place] of Low. Post-contrast 4.5 mm thick sections then re-acquired from the foramen magnum to the vertex. 3-dimensional asulaos-ycksvvjgy-xbhlpaqczq (MIP) and/or volume rendering reformats were acquired of the central intracranial vasculature and neck separately. For radiation dose reduction, the following was used: automated exposure control, adjustment of mA and/or kV according to patient size. COMPARISON: [facility], CT, CT HEAD/BRAIN WO CON, 08/05/2021, 11:51. FINDINGS: Image quality: Excellent. BRAIN: CSF spaces: Ventricles are normal in size and shape. Basal cisterns are patent. No extra-axial fluid collections. Brain: No midline shift. No intracranial bleeds or masses. Sol-white matter interface appears intact. No area of abnormal contrast enhancement is seen Skull and face: Calvarium and facial bones appear intact, without suspicious lesions. Orbits appear normal. Sinuses: Sinuses and mastoids are clear. HEAD CT ANGIOGRAPHY: Anterior circulation: Intracranial internal carotid arteries are normal in size and flow. The flow within the paired anterior cerebral arteries is normal and symmetric. The flow within the middle cerebral arteries is normal and symmetric. The anterior communicating artery is seen. No aneurysms are seen. Posterior circulation: Visualized portions of the vertebral arteries demonstrate normal caliber, and join to form a normal appearing basilar artery. Flow within the posterior cerebral arteries is normal and symmetric. No aneurysms are seen. NECK CT ANGIOGRAPHY: Carotid system: The great vessels demonstrate a conventional anatomy as they arise from the aortic arch. The origins of the common carotid arteries appear patent. The common carotid arteries demonstrate normal caliber and courses. The bifurcation regions are both widely patent. The internal carotid arteries demonstrate normal calibers and courses. Posterior circulation: The origins of the vertebral arteries both appear widely patent. The more superior extracranial portions of both vertebral arteries also demonstrate normal courses and calibers. They join to form a normal appearing basilar artery. Soft tissues: Visualized neck soft tissues demonstrate no suspicious abnormalities. Bones: No suspicious bony lesions. Visualized cervical spine appears normally aligned. IMPRESSION: 1. No CT evidence of acute intracranial abnormalities. No area of abnormal intracranial enhancement. 2. No hemodynamically significant stenosis or aneurysm is seen in intracranial circulation. 3. No hemodynamically significant stenosis is seen in bilateral neck arteries. Any quantitative measurements of stenosis were performed using NASCET criteria. Dictated by: Walt Vega M.D. on 08/05/2021 at 14:38 Approved by: Walt Vega M.D. on 08/05/2021 at 14:41
[2021-08-05] MEDS: METOCLOPRAMIDE 10 MG/2 ML INJ IV (15:22)
[2021-08-05] MEDS: ACETAMINOPHEN 325 MG TABLET 975 MG PO (15:22)
[2021-08-05 15:45] LABS: COVID19 -Nasal RAPID Negative (Negative)
[2021-08-05] MEDS: LORazepam 0.5 MG TABLET PO (16:49)
== END 2021-08-05 17:11 | disposition home or self-care (01) ==
PROVIDERS: Emergency Provider Emergency Medicine; PCP Family Medicine
DX: R51.9 Headache, unspecified (principal); R19.7 Diarrhea, unspecified; Z79.82 Long term (current) use of aspirin; Z20.822 Contact with and (suspected) exposure to COVID-19; R03.0 Elevated blood-pressure reading, without diagnosis of hypertension
CPT/HCPCS: 36415; 70450; 70496; 70498; 80053; 83605; 83880; 85025; 85610; 87635; 93005; 93010; 96374; 99284; C9803; J2765; Q9967

== ENCOUNTER 2022-03-19 06:50 | Emergency (ER) | payer MEDICARE, OTHER, SELFPAY ==
[2022-03-19] VITALS (10 sets, daily range): BP systolic 120–156; BP diastolic 63–76; PULSE 66–76; RESP 18; TEMP 36.4; O2SAT 94–98; BMI 35.5
--- NOTE | 2022-03-19 07:30 | DI.CT.S_ITS ---
PROCEDURE: CT ABDOMEN PELVIS W CON INDICATIONS: IV contrast only/lower abdominal pain TECHNIQUE: After the administration of IV contrast, axial sections were acquired from the lung bases to the pubic symphysis. Coronal and sagittal reformats were performed. For radiation dose reduction, the following was used: automated exposure control, adjustment of mA and/or kV according to patient size. COMPARISON: None. FINDINGS: Image quality: Excellent. Lung bases: No pleural effusion. Minimal atelectasis.. Heart: No significant findings. ABDOMEN: Liver: No focal lesion. Hepatic steatosis. Gallbladder: Absent. Biliary ducts: Unremarkable. Pancreas: Unremarkable. Spleen: Unremarkable. Adrenal Glands: No nodule. Kidneys and Ureters: No hydronephrosis. Stomach and Bowel: Stomach, small bowel loops, and colon are unremarkable. Normal appendix. Peritoneum: No abnormal intraperitoneal fluid. No free air. Ventral Wall: No hernia. Abdominal Nodes: No retroperitoneal or mesenteric adenopathy by size criteria. Vessels: Aorta and inferior vena cava are normal in size. PELVIS: Pelvic Organs: Anteverted uterus. Bladder: Not distended. Pelvic Nodes: No enlarged lymph nodes. Miscellaneous: No inguinal hernias are seen. Bones: No suspicious lesion. IMPRESSION: No acute abnormality identified. No free fluid. Normal appendix. Dictated by: Chas Abraham M.D. on 03/19/2022 at 8:12 Approved by: Chas Abraham M.D. on 03/19/2022 at 8:17
--- NOTE | 2022-03-19 07:31 | ED.ABDPAIN ---
HPI - Abdominal Pain General Chief Complaint: Abdominal Pain Stated Complaint: abd pain, n/v Time Seen by Provider: 03/19/22 07:18 Source: patient Mode of arrival: Ambulatory History of Present Illness HPI narrative: Patient here with her sister. Brought here by her sister. Patient has complaints of intermittent lower abdominal/suprapubic aching that does not radiate. Has had nausea. Has had decreased appetite. Has urinary frequency and polydipsia. Patient diagnosed with diabetes about a year ago. She is from [place]. She came here in January 2022 to help her sister with her health. Sister had a heart attack. She is on metformin 500 mg twice a day. She forgot to bring her Ozempic, has not had it since January. Her family doctor also prescribed her Jardiance 10 mg once day. She just started this March 08 and shortly afterwards has had these symptoms. Denies any chest pain. No fever chills. No dysuria. Patient states not feel like a UTI. Denies any chest pain or back pain Related Data Home Medications Medication Instructions Recorded Confirmed aspirin 81 mg tablet,delayed 81 mg PO QDAY ##0 07/23/11 11/06/18 release multivitamin 1 tab PO DAILY ##0 07/23/11 11/06/18 albuterol sulfate 90 mcg/actuation 2 puff INH PRN ##0 07/31/12 11/06/18 aerosol inhaler (Ventolin HFA) cyclobenzaprine 10 mg tablet 10 mg PO BEDTIME ##0 07/31/12 11/06/18 metolazone 2.5 mg tablet 2.5 mg PO DAILY PRN Edema ##0 07/31/12 11/06/18 omeprazole 20 mg capsule,delayed 20 mg PO BEDTIME ##0 07/31/12 11/06/18 release nitroglycerin 0.4 mg sublingual 1 tab sublingual PRN PRN Chest 05/14/17 11/06/18 tablet (Nitrostat) Pain ##0 potassium gluconate 595 mg (99 mg) 1 tab PO DAILY ##0 05/14/17 11/06/18 tablet carbidopa 25 mg-levodopa 100 mg 1 tab PO DIRECTED 09/05/17 11/06/18 tablet carvedilol 12.5 mg tablet 12.5 mg PO BID 09/05/17 11/06/18 colchicine 0.6 mg tablet 1 tab PO PRN PRN GOUT FLAREUP 09/05/17 11/06/18 cyclobenzaprine 10 mg tablet 10 mg PO BEDTIME 09/05/17 11/06/18 donepezil 5 mg tablet 5 mg PO DAILY 09/05/17 11/06/18 febuxostat 80 mg tablet 80 mg PO DAILY 09/05/17 11/06/18 prednisone 10 mg tablet 10 - 20 mg PO DAILY PRN gout 09/05/17 11/06/18 flareup pregabalin 150 mg capsule 150 mg PO BID 09/05/17 11/06/18 ropinirole 3 mg tablet 1 tab PO QPM 09/05/17 11/06/18 spironolactone 50 mg tablet 50 mg PO DAILY 09/05/17 11/06/18 torsemide 100 mg tablet 50 mg PO QAM 09/05/17 11/06/18 torsemide 20 mg tablet 20 mg PO DAILY 09/05/17 11/06/18 Previous Rx's Medication Instructions Recorded ondansetron 4 mg disintegrating 4 mg PO Q8H PRN nausea and 03/19/22 tablet vomiting #15 tabs Allergies Allergy/AdvReac Type Severity Reaction Status Date / Time allopurinol Allergy Verified 11/06/18 19:40 codeine AdvReac Rash Verified 11/06/18 19:40 Review of Systems Review of Systems Narrative: GENERAL: negative chills, fatigue, malaise, fever, sweats. HEENT: negative sinus pain, ear pain, sore throat RESPIRATORY: negative dyspnea, cough CARDIOVASCULAR: negative chest pain, palpitations GASTROINTESTINAL: Positive nausea, negative vomiting, positive abdominal pain : negative dysuria, positive frequency, negative hematuria MUSCULOSKELETAL: negative muscle or bony pain SKIN: negative rash, skin lesions NEUROLOGIC: negative weakness, numbness ROS Unobtainable: All systems reviewed & are unremarkable except as noted in HPI and below Patient History Social History Smoking Status: Never smoker Smoking Status: Never smoker alcohol intake frequency: 0-2 drinks per day Substance Use Type: does not use Exam Narrative Exam Narrative: GENERAL: in no distress, not toxic not dyspneic HEAD: Normocephalic. EYES: Pupils equal round ENT: Mucous membranes moist. NECK: Trachea midline. CARDIOVASCULAR: Regular rate and rhythm without murmurs RESPIRATORY: Clear to auscultation. Breath sounds equal bilaterally. No wheezes, rales, or rhonchi. GASTROINTESTINAL: Abdomen soft, mild suprapubic tenderness but no peritoneal signs bowel sounds are present. No CVA tenderness EXTREMITIES: No gross deformities. BACK: No flank tenderness. NEURO: AOx4. SKIN: Warm and dry PSYCH: Not anxious, is cooperative Initial Vital Signs Initial Vital Signs: Vital Signs Temperature 97.5 F L 03/19/22 06:58 Pulse Rate 76 03/19/22 06:58 Respiratory Rate 18 03/19/22 06:58 Blood Pressure 156/74 H 03/19/22 06:58 Pulse Oximetry 97 03/19/22 06:58 Oxygen Delivery Method 03/19/22 06:58 Course Orders Ordered: ED Orders 03/19/22 07:30 CT abdomen pelvis w con Stat 03/19/22 07:40 A1C [Hemoglobin A1C% w Est Avg Glu] Stat Complete Blood Count AUTO DIFF Stat Comprehensive Metabolic Panel Stat Ketones (Beta-Hydroxybutyrate) Stat Lipase Stat 03/19/22 08:59 Troponin & CK Cardiac Panel Stat 03/19/22 09:05 EKG-12 Lead Stat Discontinued Medications Sodium Chloride (Normal Saline 0.9%) 1,000 mls @ 1,000 mls/hr IV BOLUS ONE Stop: 03/19/22 08:28 Last Infusion: 03/19/22 09:06 Dose: 0 mls/hr Documented By: Admin: 03/19/22 08:11 Dose: 1,000 mls/hr Documented By: RB Ondansetron HCl (Ondansetron 4 Mg/2 Ml Inj) 4 mg IV NOW ONE Stop: 03/19/22 08:14 Last Admin: 03/19/22 08:15 Dose: 4 mg Documented By: RB Vital Signs Vital signs: Vital Signs - 8 hr 03/19/22 06:58 03/19/22 07:18 03/19/22 07:18 Temperature 97.5 F L Pulse Rate 76 72 Respiratory Rate 18 Blood Pressure 156/74 H 135/76 Pulse Oximetry 97 95 Oxygen Delivery Method Room Air 03/19/22 07:30 03/19/22 07:30 03/19/22 08:06 Temperature Pulse Rate 70 70 Respiratory Rate Blood Pressure 137/70 Pulse Oximetry 94 97 Oxygen Delivery Method 03/19/22 08:07 03/19/22 08:07 03/19/22 08:30 Temperature Pulse Rate 69 Respiratory Rate Blood Pressure 137/75 122/63 Pulse Oximetry 97 Oxygen Delivery Method 03/19/22 08:30 03/19/22 09:00 03/19/22 09:00 Temperature Pulse Rate 67 68 Respiratory Rate Blood Pressure 120/63 Pulse Oximetry 95 98 Oxygen Delivery Method 03/19/22 09:30 03/19/22 09:30 03/19/22 09:33 Temperature Pulse Rate 66 71 Respiratory Rate Blood Pressure 125/64 Pulse Oximetry 97 97 Oxygen Delivery Method 03/19/22 09:34 Temperature Pulse Rate Respiratory Rate Blood Pressure 131/68 Pulse Oximetry Oxygen Delivery Method MDM - Abdominal Pain Differential Diagnosis Differential diagnosis: Likely abdominal pain, acute appendicitis, constipation, diverticulitis, gastroenteritis, pancreatitis and small bowel obstruction Lab Data 03/19/22 07:40 03/19/22 07:40 Labs: Lab Results 03/19/22 03/19/22 03/19/22 Range/Units 07:40 07:40 07:40 WBC 7.8 (4.5-11.0) X10^3/uL RBC 4.07 (4.0-5.2) X10^6/uL Hgb 11.7 L (12.0-16.0) g/dL Hct 34.8 L (36-46) % MCV 85.6 (80-100) fL MCH 28.8 (26-34) PG MCHC 33.7 (30-36) % RDW 14.2 (11.6-14.8) % Plt Count 269 (150-400) X10^3/uL Neut % (Auto) 66.5 (50-75) % Lymph % (Auto) 24.1 L (25-40) % [place] % (Auto) 7.7 (3-14) % Eos % (Auto) 1.0 L (2-4) % Baso % (Auto) 0.7 (0-2) % Neut # (Auto) 5200 (3082-2731) /uL Lymph # (Auto) 1900 (0282-6835) /uL [place] # (Auto) 600 (0-900) /uL Eos # (Auto) 100 (0-450) /uL Baso # (Auto) 100 (0-100) /uL Sodium 141 (137-145) mmol/L Potassium 4.1 (3.4-5.1) mmol/L Chloride 104 (98-107) mmol/L Carbon Dioxide 26 (22-32) mmol/L BUN 28 H (7-17) mg/dL Creatinine 0.94 (0.52-1.04) mg/dL Estimated GFR > 60 (>60) mL/min BUN/Creatinine Ratio 29.8 H (6-22) Glucose 140 H (70-100) mg/dL Hemoglobin A1c (4.0-6.0) % Calcium 8.8 (8.4-10.2) mg/dL Total Bilirubin 0.7 (0.2-1.3) mg/dL AST 32 (14-36) IU/L ALT 35 H (<35) IU/L Alkaline Phosphatase 93 (38-126) U/L Total Creatine Kinase (30-135) U/L CK-MB (CK-2) CK-MB (CK-2) Rel Index Troponin I (0.01-0.034) ng/mL Total Protein 7.2 (6.3-8.2) g/dL Albumin 4.1 (3.5-5.0) g/dL Globulin 3.1 (1.7-4.1) g/dL Albumin/Globulin Ratio 1.3 (1.0-2.8) Lipase 157 (23-300) U/L Ketones 0.11 (<0.27) mmol/L 03/19/22 03/19/22 Range/Units 07:40 08:59 WBC (4.5-11.0) X10^3/uL RBC (4.0-5.2) X10^6/uL Hgb (12.0-16.0) g/dL Hct (36-46) % MCV (80-100) fL MCH (26-34) PG MCHC (30-36) % RDW (11.6-14.8) % Plt Count (150-400) X10^3/uL Neut % (Auto) (50-75) % Lymph % (Auto) (25-40) % [place] % (Auto) (3-14) % Eos % (Auto) (2-4) % Baso % (Auto) (0-2) % Neut # (Auto) (3220-2855) /uL Lymph # (Auto) (7815-8502) /uL [place] # (Auto) (0-900) /uL Eos # (Auto) (0-450) /uL Baso # (Auto) (0-100) /uL Sodium (137-145) mmol/L Potassium (3.4-5.1) mmol/L Chloride (98-107) mmol/L Carbon Dioxide (22-32) mmol/L BUN (7-17) mg/dL Creatinine (0.52-1.04) mg/dL Estimated GFR (>60) mL/min BUN/Creatinine Ratio (6-22) Glucose (70-100) mg/dL Hemoglobin A1c 6.4 H (4.0-6.0) % Calcium (8.4-10.2) mg/dL Total Bilirubin (0.2-1.3) mg/dL AST (14-36) IU/L ALT (<35) IU/L Alkaline Phosphatase (38-126) U/L Total Creatine Kinase 39 (30-135) U/L CK-MB (CK-2) TNP CK-MB (CK-2) Rel Index TNP Troponin I < 0.012 (0.01-0.034) ng/mL Total Protein (6.3-8.2) g/dL Albumin (3.5-5.0) g/dL Globulin (1.7-4.1) g/dL Albumin/Globulin Ratio (1.0-2.8) Lipase (23-300) U/L Ketones (<0.27) mmol/L Point of care testing: Point of Care Testing Glucose POC 147 Urine Dip Bedside Urine Glucose 1000 mg/dl Bedside Urine Bilirubin - Negative Bedside Urine Ketone - Negative Urine Specific [place] 1.015 Bedside Urine Occult Blood - Negative Bedside Urine pH 6.0 Bedside Urine Protein - Negative Bedside Urine Urobilinogen +/- 1mg Bedside Urine Nitrite - Negative Bedside Urine Leukocytes - Negative Esterase Imaging Data CT scan - abdomen/pelvis: Radiologist's Impression: [address] [address] [address] Scan Report Signed Patient: Laura Fonseca MR#: [id number] : 1960 Acct:[id number] Age/Sex: 61 / F Date of Service: 03/19/22 Loc: ED Accession Number: [id number] ?? Procedure: CT abdomen pelvis w con Ordering Provider: Hunter Campbell MD PROCEDURE:? CT ABDOMEN PELVIS W CON ? INDICATIONS:? IV contrast only/lower abdominal pain ? TECHNIQUE:? After the administration of IV contrast, axial sections were acquired from the lung bases to the pubic symphysis.? Coronal and sagittal reformats were performed.? For radiation dose reduction, the following was used:? automated exposure control, adjustment of mA and/or kV according to patient size. ? COMPARISON:? None. ? FINDINGS:? Image quality:? Excellent.? ? Lung bases:? No pleural effusion.? Minimal atelectasis..? ? Heart:? No significant findings. ? ? ABDOMEN: Liver:? No focal lesion.? Hepatic steatosis.? ? Gallbladder:? Absent. Biliary ducts:? Unremarkable.? ? Pancreas:? Unremarkable.? ? Spleen:? Unremarkable.? ? Adrenal Glands:? No nodule. Kidneys and Ureters:? No hydronephrosis. ? Stomach and Bowel:? Stomach, small bowel loops, and colon are unremarkable.? Normal appendix. Peritoneum:? No abnormal intraperitoneal fluid.? No free air.? ? Ventral Wall: ? No hernia.? Abdominal Nodes:? No retroperitoneal or mesenteric adenopathy by size criteria.? Vessels:? Aorta and inferior vena cava are normal in size.? ? PELVIS: Pelvic Organs:? Anteverted uterus.? ? Bladder:? Not distended. Pelvic Nodes: No enlarged lymph nodes.? Miscellaneous: No inguinal hernias are seen. ? ? ? Bones:? No suspicious lesion. ? ? IMPRESSION:? No acute abnormality identified.? No free fluid.? Normal appendix.? ? ? Dictated by: Chas Abraham M.D. on 03/19/2022 at 8:12 ? ? Approved by: Chas Abraham M.D. on 03/19/2022 at 8:17 ? MDM Narrative Medical decision making narrative: Patient here with her sister. Brought here by her sister. Patient has complaints of intermittent lower abdominal/suprapubic aching that does not radiate. Has had nausea. Has had decreased appetite. Has urinary frequency and polydipsia. Patient diagnosed with diabetes about a year ago. She is from [place]. She came here in January 2022 to help her sister with her health. Sister had a heart attack. She is on metformin 500 mg twice a day. She forgot to bring her Ozempic, has not had it since January. Her family doctor also prescribed her Jardiance 10 mg once day. She just started this March 08 and shortly afterwards has had these symptoms. Denies any chest pain. No fever chills. No dysuria. Patient states not feel like a UTI. Denies any chest pain or back pain After exam and history, CBC CMP lipase urinalysis CT IV fluids Zofran has been ordered. MDM CC: Abdominal pain Complicating co-morbidities: Diabetes/CHF Data collected from: Patient and sister Medical records reviewed: Patient visit here last year. Visits for headache/another visit for atypical chest pain Differential considered: Includes but not limited to abdominal pain/appendicitis/bowel obstruction/ischemic bowel/UTI/diverticulosis/diverticulitis/medication reaction Exam documented above, pertinent findings include: Suprapubic tenderness Lab Test results independently reviewed as above. Pertinent findings: CBC without leukocytosis. Normal lipase. Ketones are negative, CMP shows glucose 140, hemoglobin A1c 6.4, urinalysis negative for ketones/nitrate/leuk esterase, normal troponin EKG normal sinus rhythm normal EKG rate 68, interpreted by me. No ST elevation or depression Imaging studies independently reviewed: CT abdomen pelvis with IV contrast no acute process. Treatments: Normal saline IV fluids/Zofran Re-evaluations: 8:30 a.m.. Reviewed results with patient and sister. At this time imaging CT scan is reassuring. As well as blood work and urinalysis. Likely reaction to Jardiance. Patient will stop taking this and will resume metformin. Discussion: Appropriate for discharge home. Patient likely having reaction to Jardiance, symptoms she is describing did start after shortly starting Jardiance March 08. She will likely need to resume her Ozempic, she will need to call her family doctor in [place] to get refills, return precautions reviewed with patient. Exam and laboratory studies otherwise reassuring. Prescription for Zofran will be prescribed. Reviewed EKG and troponin with patient and sister. Likely not cardiac in origin for her suprapubic tenderness/pain. Diagnosis: Abdominal pain/medication reaction Discharge Plan Departure Patient Disposition: Home Clinical Impression: Abdominal pain Instructions: DI for Abdominal Pain-Adult Activity Restrictions/Additional Instructions: Please call your primary care office today to inform you may be having reaction to Jardiance. You may need refill for Ozempic. Please do continue metformin as prescribed. Prescription for Zofran has been provided for you. Keep well hydrated. Return if worse if any questions or concerns. Prescriptions: New ondansetron 4 mg tablet,disintegrating 4 mg PO Q8H PRN (Reason: nausea and vomiting) Qty: 15 0RF No Action multivitamin Tablet 1 tab PO DAILY Qty: 0 Label Comments: PATIENT STATES HAS NOT TAKEN FOR AWHILE aspirin 81 MG tablet,delayed release (DR/EC) 81 mg PO QDAY Qty: 0 Label Comments: NOT TAKEN TODAY. PATIENT STATES RAN OUT metolazone 2.5 mg Tablet 2.5 mg PO DAILY PRN (Reason: Edema) Qty: 0 omeprazole 20 mg Capsule,Delayed Release(Dr/Ec) 20 mg PO BEDTIME Qty: 0 albuterol sulfate [Ventolin HFA] 90 MCG/PUFF HFA aerosol inhaler 2 puff INH PRN Qty: 0 cyclobenzaprine 10 MG tablet 10 mg PO BEDTIME Qty: 0 potassium gluconate 99 MG tablet 1 tab PO DAILY Qty: 0 nitroglycerin [Nitrostat] 0.4 MG tablet, sublingual 1 tab Sublingual PRN PRN (Reason: Chest Pain) Qty: 0 cyclobenzaprine 10 mg tablet 10 mg PO BEDTIME prednisone 10 mg tablet 10 - 20 mg PO DAILY PRN (Reason: gout flareup) Label Comments: take 1 to 2 tablets by mouth FOR 3 TO 5 DAYS NEEDED FOR GOUT FLARE carvedilol 12.5 mg tablet 12.5 mg PO BID donepezil 5 mg tablet 5 mg PO DAILY torsemide 20 mg tablet 20 mg PO DAILY ropinirole 3 mg tablet 1 tab PO QPM torsemide 100 mg tablet 50 mg PO QAM colchicine [Colcrys] 0.6 mg tablet 1 tab PO PRN PRN (Reason: GOUT FLAREUP) Label Comments: TAKE 1 TAB AT ONSET OF A GOUT FLARE AND THEN IN NEXT HOUR TAKE 1 ADDITIONAL TAB carbidopa-levodopa 25-100 mg tablet 1 tab PO DIRECTED Label Comments: PATIENT STATES NEEDED TID spironolactone 50 mg tablet 50 mg PO DAILY pregabalin [Lyrica] 150 mg capsule 150 mg PO BID febuxostat [Uloric] 80 mg tablet 80 mg PO DAILY Label Comments: take 1 tablet by mouth once daily Referrals: Lois Heller MD [Primary Care Provider] - Stand Alone Forms: Patient Portal/API
[2022-03-19 07:56] LABS: Add Manual Diff / Slide Review NO; Basophils Absolute Auto 100 /uL (0-100); Basophils Percent Auto 0.7 % (0-2); Eosinophils Absolute Auto 100 /uL (0-450); Hematocrit 34.8 % (36-46); Hemoglobin 11.7 g/dL (12.0-16.0); Lymphocytes Absolute Auto 1900 /uL (1100-4500); Lymphocytes Percent Auto 24.1 % (25-40); Mean Corpuscular HGB Conc 33.7 % (30-36); Mean Corpuscular Hemoglobin 28.8 PG (26-34); Mean Corpuscular Volume 85.6 fL (80-100); Monocytes Absolute Auto 600 /uL (0-900); Monocytes Percent Auto 7.7 % (3-14); Neutrophils Absolute Auto 5200 /uL (1500-7000); Neutrophils Percent Auto 66.5 % (50-75); Platelet Count 269 X10^3/uL (150-400); Red Blood Cell Count 4.07 X10^6/uL (4.0-5.2); Red Cell Distribution Width 14.2 % (11.6-14.8); White Blood Cell Count 7.8 X10^3/uL (4.5-11.0)
[2022-03-19 08:02] LABS: Hemoglobin A1C% w Est Avg Glu 6.4 % (4.0-6.0)
[2022-03-19 08:05] LABS: Alanine Aminotransferase 35 IU/L (<35); Albumin 4.1 g/dL (3.5-5.0); Albumin Globulin Ratio 1.3 (1.0-2.8); Alkaline Phosphatase 93 U/L (38-126); Aspartate Aminotransferase 32 IU/L (14-36); BUN Creatinine Ratio 29.8 (6-22); Bilirubin Total 0.7 mg/dL (0.2-1.3); Blood Urea Nitrogen 28 mg/dL (7-17); Calcium 8.8 mg/dL (8.4-10.2); Carbon Dioxide 26 mmol/L (22-32); Chloride 104 mmol/L (98-107); Estimated Glomerular Filt Rate > 60 mL/min (>60); Globulin 3.1 g/dL (1.7-4.1); Glucose 140 mg/dL (70-100); HEMOLYSIS < 15 (0-50); Lipase 157 U/L (23-300); Potassium 4.1 mmol/L (3.4-5.1); Sodium 141 mmol/L (137-145); Total Protein 7.2 g/dL (6.3-8.2)
[2022-03-19 08:07] LABS: Ketones (Beta-Hydroxybutyrate) 0.11 mmol/L (<0.27)
[2022-03-19] MEDS: SODIUM CHLORIDE 0.9% 1,000 ML 1000 ML IV (08:11)
[2022-03-19] MEDS: ONDANSETRON 4 MG/2 ML INJ IV (08:15)
[2022-03-19 09:09] LABS: Creatine Kinase 39 U/L (30-135)
[2022-03-19 09:22] LABS: Troponin I < 0.012 ng/mL (0.01-0.034)
== END 2022-03-19 09:36 | disposition home or self-care (01) ==
PROVIDERS: Emergency Provider Emergency Medicine; PCP Family Medicine
DX: R10.30 Lower abdominal pain, unspecified (principal); R11.0 Nausea
CPT/HCPCS: 36415; 74177; 80053; 81003; 82009; 82550; 82962; 83036; 83690; 84484; 85025; 93005; 96361; 96374; 99284; J2405; Q9967

== ENCOUNTER 2022-03-27 10:33 | Emergency (ER) | payer MEDICARE, OTHER, SELFPAY ==
[2022-03-27] VITALS (11 sets, daily range): BP systolic 100–164; BP diastolic 71–106; PULSE 64–86; RESP 10–57; TEMP 36.6; O2SAT 96–100; BMI 36.3
--- NOTE | 2022-03-27 11:14 | ED_ITS ---
HPI - Abdominal Pain General Chief Complaint: Abdominal Pain Stated Complaint: Abd pain, nausea, diarrhea Time Seen by Provider: 03/27/22 11:14 Source: patient Mode of arrival: Ambulatory Limitations: no limitations History of Present Illness HPI narrative: Patient was seen here last week with lower abdominal pain, nausea diarrhea. She is diabetic. She underwent chemotherapy about 1 year ago for breast cancer. She developed CHF following chemotherapy. Evaluation last week include lab evaluation, and CT. The GI symptoms for thought to be a potential side effect to her diabetes medication Jardiance. Diarrhea persists, but abdominal crampy his decreasing that seems to be improving. She is eating drinking well. She is worried about her CHF. She has no URI symptoms, cough, palpitations or immediate chest discomfort. She does have chest tightness with exertion, and dyspnea on exertion. She is not coughing. She is not immediately short of breath. She is taking her diuretics. She is no lower extremity edema. Related Data Home Medications Medication Instructions Recorded Confirmed aspirin 81 mg tablet,delayed 81 mg PO QDAY ##0 07/23/11 11/06/18 release multivitamin 1 tab PO DAILY ##0 07/23/11 11/06/18 albuterol sulfate 90 mcg/actuation 2 puff INH PRN ##0 07/31/12 11/06/18 aerosol inhaler (Ventolin HFA) cyclobenzaprine 10 mg tablet 10 mg PO BEDTIME ##0 07/31/12 11/06/18 metolazone 2.5 mg tablet 2.5 mg PO DAILY PRN Edema ##0 07/31/12 11/06/18 omeprazole 20 mg capsule,delayed 20 mg PO BEDTIME ##0 07/31/12 11/06/18 release nitroglycerin 0.4 mg sublingual 1 tab sublingual PRN PRN Chest 05/14/17 11/06/18 tablet (Nitrostat) Pain ##0 potassium gluconate 595 mg (99 mg) 1 tab PO DAILY ##0 05/14/17 11/06/18 tablet carbidopa 25 mg-levodopa 100 mg 1 tab PO DIRECTED 09/05/17 11/06/18 tablet carvedilol 12.5 mg tablet 12.5 mg PO BID 09/05/17 11/06/18 colchicine 0.6 mg tablet 1 tab PO PRN PRN GOUT FLAREUP 09/05/17 11/06/18 cyclobenzaprine 10 mg tablet 10 mg PO BEDTIME 09/05/17 11/06/18 donepezil 5 mg tablet 5 mg PO DAILY 09/05/17 11/06/18 febuxostat 80 mg tablet 80 mg PO DAILY 09/05/17 11/06/18 prednisone 10 mg tablet 10 - 20 mg PO DAILY PRN gout 09/05/17 11/06/18 flareup pregabalin 150 mg capsule 150 mg PO BID 09/05/17 11/06/18 ropinirole 3 mg tablet 1 tab PO QPM 09/05/17 11/06/18 spironolactone 50 mg tablet 50 mg PO DAILY 09/05/17 11/06/18 torsemide 100 mg tablet 50 mg PO QAM 09/05/17 11/06/18 torsemide 20 mg tablet 20 mg PO DAILY 09/05/17 11/06/18 Previous Rx's Medication Instructions Recorded ondansetron 4 mg disintegrating 4 mg PO Q8H PRN nausea and 03/19/22 tablet vomiting #15 tabs Allergies Allergy/AdvReac Type Severity Reaction Status Date / Time allopurinol Allergy Verified 03/27/22 10:55 codeine AdvReac Rash Verified 03/27/22 10:55 Review of Systems Constitutional Constitutional: Denies body ache(s), Denies chills, Denies fatigue, Denies fever(s) and Denies headache(s) Eyes Eyes: Denies change in vision ENT Ears, Nose, Mouth, and Throat: Denies vertigo, Denies dizziness and Denies headache(s) Comments: No sore throat. No sinus pressure. Cardiovascular Cardiovascular: Denies chest pain, Denies syncope, Denies rapid heart rate, Reports pedal edema, Denies edema, Denies irregular heart rhythm and Reports dyspnea on exertion Respiratory Respiratory: Denies cough and Reports dyspnea on exertion Gastrointestinal Gastrointestinal: Reports as per HPI Genitourinary Genitourinary: Denies dysuria Musculoskeletal Musculoskeletal: Denies back pain and Denies arthralgias Integumentary/Breasts Skin/Breast: Denies lesions and Denies rash Neurologic Neurologic: Denies confusion, Denies vertigo, Denies dizziness, Denies syncope and Denies headache(s) Psychiatric Psychiatric: Reports anxiety, Denies confusion and Denies panic attacks Endocrine Endocrine: Denies fatigue Hematologic/Lymphatic On Anticoagulants: No Patient History Medical History (Updated 03/27/22 @ 19:22 by Clayton Lopes MD) Anxiety Breast cancer Diabetes Fibromyalgia Social History Smoking Status: Never smoker Smoking Status: Never smoker alcohol intake frequency: 0-2 drinks per day Substance Use Type: does not use Exam Initial Vital Signs Initial Vital Signs: Vital Signs Pulse Rate 86 03/27/22 10:53 Pulse Oximetry 100 03/27/22 10:53 Const General: cooperative, well developed, well groomed and anxious HENMT Head: normocephalic and atraumatic Throat: posterior oropharynx normal Neck Neck: No JVD Chest Chest: normal inspection of the chest Resp Auscultation: clear to auscultation bilaterally Cardio Rate: regular rate Rhythm: regular rhythm Heart Sounds: S1 normal and S2 normal GI Inspection: normal to inspection Palpation: soft and No tender Auscultation: normal bowel sounds Back/Spine/Pelvis Back: normal to inspection and No back tenderness Skin General: no rashes or lesions noted Neuro General: patient alert, patient awake, patient oriented x3 and no focal motor deficits Extrem General: normal to inspection, full ROM, no pedal edema and no calf tenderness Psych Mood: anxious mood Course Course Course Narrative: Her abdominal pain has reportedly improved, she did not explain she is intermittent diarrhea. She gave a sample, but the stool is currently formed. And GI PCR panel has been ordered as an outpatient. She should bring a sample and when she is experiencing diarrhea. There is no evidence of CHF. She is multiple significant illnesses, breast cancer, anxiety, and diabetes. She lives in [place]. She used to live here. I suggested she seek out her prior PCM, she is local medical care. Orders Ordered: ED Orders 03/27/22 11:00 BNP [NT-proBNP (BNP-Adult 18+)] Stat Complete Blood Count AUTO DIFF Stat Comprehensive Metabolic Panel Stat Lipase Stat cardiac panel [Troponin & CK Cardiac Panel] Stat 03/27/22 11:33 Chest [XR chest 1V] Stat EKG-12 Lead Stat Discontinued Medications Diphenhydramine HCl (Diphenhydramine 50 Mg/Ml Vial) 25 mg IV NOW ONE Stop: 03/27/22 12:18 Last Admin: 03/27/22 12:23 Dose: Not Given Documented By: NR Metoclopramide HCl (Metoclopramide 10 Mg/2 Ml Inj) 10 mg IV NOW ONE Stop: 03/27/22 12:18 Last Admin: 03/27/22 12:26 Dose: 10 mg Documented By: NEFTALI Ondansetron HCl (Ondansetron 4 Mg/2 Ml Inj) 4 mg IV NOW PRN PRN Reason: Nausea And Vomiting Vital Signs Vital signs: Vital Signs - 8 hr 03/27/22 11:23 03/27/22 11:23 03/27/22 11:30 Pulse Rate 74 Respiratory Rate 18 Blood Pressure 127/84 164/106 H Pulse Oximetry 99 03/27/22 11:30 03/27/22 11:48 03/27/22 11:48 Pulse Rate 72 71 Respiratory Rate 10 L 14 Blood Pressure 113/81 Pulse Oximetry 99 98 03/27/22 12:00 03/27/22 12:00 03/27/22 12:30 Pulse Rate 70 67 Respiratory Rate 13 13 Blood Pressure 100/71 Pulse Oximetry 96 100 03/27/22 13:00 03/27/22 13:19 03/27/22 13:19 Pulse Rate 69 65 Respiratory Rate 57 H 14 Blood Pressure 135/86 Pulse Oximetry 96 97 03/27/22 13:30 03/27/22 13:30 Pulse Rate 64 Respiratory Rate 21 Blood Pressure 146/82 H Pulse Oximetry 97 MDM - Abdominal Pain Lab Data 03/27/22 11:00 03/27/22 11:00 Labs: Lab Results 03/27/22 03/27/22 03/27/22 Range/Units 11:00 11:00 11:00 WBC 7.4 (4.5-11.0) X10^3/uL RBC 4.36 (4.0-5.2) X10^6/uL Hgb 12.8 (12.0-16.0) g/dL Hct 37.3 (36-46) % MCV 85.6 (80-100) fL MCH 29.3 (26-34) PG MCHC 34.3 (30-36) % RDW 14.5 (11.6-14.8) % Plt Count 265 (150-400) X10^3/uL Neut % (Auto) 70.0 (50-75) % Lymph % (Auto) 21.9 L (25-40) % Gates % (Auto) 6.4 (3-14) % Eos % (Auto) 1.1 L (2-4) % Baso % (Auto) 0.6 (0-2) % Neut # (Auto) 5200 (2256-6266) /uL Lymph # (Auto) 1600 (9539-3550) /uL Gates # (Auto) 500 (0-900) /uL Eos # (Auto) 100 (0-450) /uL Baso # (Auto) 0 (0-100) /uL Sodium 139 (137-145) mmol/L Potassium 3.7 (3.4-5.1) mmol/L Chloride 98 (98-107) mmol/L Carbon Dioxide 28 (22-32) mmol/L BUN 29 H (7-17) mg/dL Creatinine 1.04 (0.52-1.04) mg/dL Estimated GFR > 60 (>60) mL/min BUN/Creatinine Ratio 27.9 H (6-22) Glucose 186 H (70-100) mg/dL Calcium 9.1 (8.4-10.2) mg/dL Total Bilirubin 1.2 (0.2-1.3) mg/dL AST 49 H (14-36) IU/L ALT 78 H (<35) IU/L Alkaline Phosphatase 104 (38-126) U/L Total Creatine Kinase 43 (30-135) U/L CK-MB (CK-2) TNP CK-MB (CK-2) Rel Index TNP Troponin I < 0.012 (0.01-0.034) ng/mL NT-Pro-B Natriuret Pep 33 (<125) pg/mL Total Protein 8.0 (6.3-8.2) g/dL Albumin 4.6 (3.5-5.0) g/dL Globulin 3.4 (1.7-4.1) g/dL Albumin/Globulin Ratio 1.4 (1.0-2.8) Lipase 114 (23-300) U/L Point of care testing: Urine Dip Bedside Urine Glucose Negative Bedside Urine Bilirubin - Negative Bedside Urine Ketone - Negative Urine Specific [place] 1.015 Bedside Urine Occult Blood - Negative Bedside Urine pH 6.0 Bedside Urine Protein - Negative Bedside Urine Urobilinogen - Negative Bedside Urine Nitrite - Negative Bedside Urine Leukocytes - Negative Esterase Discharge Plan Departure Patient Disposition: Home Clinical Impression: Dyspnea on exertion, Diarrhea Instructions: Diarrhea, DI for Shortness of Breath Activity Restrictions/Additional Instructions: Continue current medications. You have no evidence of CHF at this time. I have ordered an outpatient GI panel. This is PCR testing for GI pathogens. Return this to lab when you have a diarrhea bowel movement. You have multiple medical issues that deserve ongoing monitoring/care. Although you live in [place], you are going to be here for an extended period of time and you should make an appointment with local primary care. Return the ER as needed. Prescriptions: No Action multivitamin Tablet 1 tab PO DAILY Qty: 0 Label Comments: PATIENT STATES HAS NOT TAKEN FOR AWHILE aspirin 81 MG tablet,delayed release (DR/EC) 81 mg PO QDAY Qty: 0 Label Comments: NOT TAKEN TODAY. PATIENT STATES RAN OUT metolazone 2.5 mg Tablet 2.5 mg PO DAILY PRN (Reason: Edema) Qty: 0 omeprazole 20 mg Capsule,Delayed Release(Dr/Ec) 20 mg PO BEDTIME Qty: 0 albuterol sulfate [Ventolin HFA] 90 MCG/PUFF HFA aerosol inhaler 2 puff INH PRN Qty: 0 cyclobenzaprine 10 MG tablet 10 mg PO BEDTIME Qty: 0 potassium gluconate 99 MG tablet 1 tab PO DAILY Qty: 0 nitroglycerin [Nitrostat] 0.4 MG tablet, sublingual 1 tab Sublingual PRN PRN (Reason: Chest Pain) Qty: 0 cyclobenzaprine 10 mg tablet 10 mg PO BEDTIME prednisone 10 mg tablet 10 - 20 mg PO DAILY PRN (Reason: gout flareup) Label Comments: take 1 to 2 tablets by mouth FOR 3 TO 5 DAYS NEEDED FOR GOUT FLARE carvedilol 12.5 mg tablet 12.5 mg PO BID donepezil 5 mg tablet 5 mg PO DAILY torsemide 20 mg tablet 20 mg PO DAILY ropinirole 3 mg tablet 1 tab PO QPM torsemide 100 mg tablet 50 mg PO QAM colchicine [Colcrys] 0.6 mg tablet 1 tab PO PRN PRN (Reason: GOUT FLAREUP) Label Comments: TAKE 1 TAB AT ONSET OF A GOUT FLARE AND THEN IN NEXT HOUR TAKE 1 ADDITIONAL TAB carbidopa-levodopa 25-100 mg tablet 1 tab PO DIRECTED Label Comments: PATIENT STATES NEEDED TID spironolactone 50 mg tablet 50 mg PO DAILY pregabalin [Lyrica] 150 mg capsule 150 mg PO BID febuxostat [Uloric] 80 mg tablet 80 mg PO DAILY Label Comments: take 1 tablet by mouth once daily ondansetron 4 mg tablet,disintegrating 4 mg PO Q8H PRN (Reason: nausea and vomiting) Qty: 15 0RF Referrals: Lois Heller MD [Primary Care Provider] - Stand Alone Forms: Patient Portal/API
[2022-03-27 11:18] LABS: Add Manual Diff / Slide Review NO; Basophils Absolute Auto 0 /uL (0-100); Basophils Percent Auto 0.6 % (0-2); Eosinophils Absolute Auto 100 /uL (0-450); Eosinophils Percent Auto 1.1 % (2-4); Hematocrit 37.3 % (36-46); Hemoglobin 12.8 g/dL (12.0-16.0); Lymphocytes Absolute Auto 1600 /uL (1100-4500); Lymphocytes Percent Auto 21.9 % (25-40); Mean Corpuscular HGB Conc 34.3 % (30-36); Mean Corpuscular Hemoglobin 29.3 PG (26-34); Mean Corpuscular Volume 85.6 fL (80-100); Monocytes Absolute Auto 500 /uL (0-900); Monocytes Percent Auto 6.4 % (3-14); Neutrophils Absolute Auto 5200 /uL (1500-7000); Platelet Count 265 X10^3/uL (150-400); Red Blood Cell Count 4.36 X10^6/uL (4.0-5.2); Red Cell Distribution Width 14.5 % (11.6-14.8); White Blood Cell Count 7.4 X10^3/uL (4.5-11.0)
[2022-03-27 11:25] LABS: Alanine Aminotransferase 78 IU/L (<35); Albumin 4.6 g/dL (3.5-5.0); Albumin Globulin Ratio 1.4 (1.0-2.8); Alkaline Phosphatase 104 U/L (38-126); Aspartate Aminotransferase 49 IU/L (14-36); BUN Creatinine Ratio 27.9 (6-22); Bilirubin Total 1.2 mg/dL (0.2-1.3); Blood Urea Nitrogen 29 mg/dL (7-17); Calcium 9.1 mg/dL (8.4-10.2); Carbon Dioxide 28 mmol/L (22-32); Chloride 98 mmol/L (98-107); Estimated Glomerular Filt Rate > 60 mL/min (>60); Globulin 3.4 g/dL (1.7-4.1); Glucose 186 mg/dL (70-100); HEMOLYSIS 20 (0-50); Lipase 114 U/L (23-300); Potassium 3.7 mmol/L (3.4-5.1); Sodium 139 mmol/L (137-145)
--- NOTE | 2022-03-27 11:33 | DI.RAD.S_ITS ---
PROCEDURE: XR CHEST 1V INDICATIONS: dyspnea. H/O CHF TECHNIQUE: One view of the chest was acquired. COMPARISON: [facility], , XR CHEST 1V, 09/05/2017, 14:16. [facility], CR, CHEST 2 VIEW, 12/15/2013, 12:51. FINDINGS: Lungs and pleura: No suspicious focal airspace opacity identified. No pleural effusion or pneumothorax. Mediastinum: Cardiac silhouette is enlarged as before. Mediastinal and hilar contours appear similar to before. Bones and chest wall: No suspicious bony lesions. Overlying soft tissues appear unremarkable. IMPRESSION: 1. No acute appearing cardiopulmonary abnormality identified. 2. Cardiac silhouette is enlarged as before without definite evidence of pulmonary vascular congestion at this time. Dictated by: Jason Carreon M.D. on 03/27/2022 at 13:06 Approved by: Jason Carreon M.D. on 03/27/2022 at 13:08
--- NOTE | 2022-03-27 11:42 | PC.NURSE ---
pt was seen here about one week ago, she states she was having abdominal pain that is ongoing for a few weeks but she came to the ER due to vomitting. pt states we have her an antiemetic but she did not take more than one time at home due to it making her heart jump around like crazy. pt states she has been taking peptobismol instead. pt states she has not had any diarrhea since yesterday when she took an antidiarrheal medication. she does have cramping in her abdomen that usually starts after she eats and is relieved with BM
[2022-03-27 12:06] LABS: Creatine Kinase 43 U/L (30-135)
[2022-03-27 12:19] LABS: NT-proBNP (BNP-Adult 18+) 33 pg/mL (<125); Troponin I < 0.012 ng/mL (0.01-0.034)
[2022-03-27] MEDS: METOCLOPRAMIDE 10 MG/2 ML INJ IV (12:26)
--- NOTE | 2022-03-27 13:37 | PC.NURSE ---
checked in on patient. pt is having some anxiety and requests to go home. pt asked about stool sample, pt informed her stool was solid and we can only run test if it is diarrhea. pt assured other tests were appearing normal and MD would be in soon to go over these results with patient. Patient does state her nausea is improved since getting medications.
== END 2022-03-27 14:02 | disposition home or self-care (01) ==
PROVIDERS: Emergency Provider Emergency Medicine; PCP Family Medicine
DX: R06.00 Dyspnea, unspecified (principal); R07.9 Chest pain, unspecified; R10.30 Lower abdominal pain, unspecified
CPT/HCPCS: 36415; 71045; 80053; 81003; 82550; 83690; 83880; 84484; 85025; 93005; 96374; 99284; J2765